=== PATIENT | male | born 1960 | race Caucasian/White ===

== ENCOUNTER → 2016-06-11 | Outpatient (CLI) | payer BC ==
--- NOTE | 2016-06-14 07:34 | RAD ---
Left shoulder four views INDICATION: Shoulder pain IMPRESSION: No fracture or dislocation. No destructive process. 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 Otherwise negative. Electronically signed by: Jose Boland MD 06/14/2016 7:34 AM CDT
== END | disposition home or self-care (01) ==
LOC: RAD 08:29
PROVIDERS: ATTEND Orthopaedic Surgery
DX: M25.512 Pain in left shoulder (principal)

== ENCOUNTER → 2016-07-16 | Outpatient (CLI) | payer BC ==
--- NOTE | 2016-07-19 08:59 | RAD ---
EXAM DESCRIPTION: Elbow,Right 3 Views CLINICAL HISTORY: PAIN IN RIGHT ELBOW COMPARISON: None Available. TECHNIQUE: AP, Lateral, and Oblique FINDINGS: Three-view right elbow shows no fracture or dislocation. No displaced fat pad or effusion is noted. There is no bone lesion. Mild degenerative arthritic changes are present There is no radiopaque foreign body. IMPRESSION: 1. Mild degenerative changes. Electronically signed by: Raj Hurst MD 07/19/2016 8:59 AM CDT
--- NOTE | 2016-07-19 09:01 | RAD ---
EXAM DESCRIPTION: Knee,Right Complete CLINICAL HISTORY: 56 years, Male, PAIN IN RIGHT KNEE COMPARISON: None TECHNIQUE: Four views of the right knee FINDINGS: Sclerosis and joint space narrowing with essentially a [id number] appearance of the medial joint compartment without marked hypertrophic lipping is present consistent with moderately advanced degenerative changes. Minimal thickening of the suprapatellar bursa suggest tenosynovitis or minimal effusion. No fracture or dislocation is seen. Hypertrophic changes along the anterior surface of the patella are noted. IMPRESSION: 1. Moderate degenerative joint changes and bone on bone appearance of the medial joint compartment. Electronically signed by: Raj Hurst MD 07/19/2016 9:01 AM CDT
--- NOTE | 2016-07-19 09:03 | RAD ---
EXAM DESCRIPTION: Pelvis CLINICAL HISTORY: 56 years Male, PAIN IN PELVIS COMPARISON: None. FINDINGS: AP view of the pelvis demonstrates mild joint space narrowing and hypertrophic lipping at the lateral acetabular rim. The bones are adequately mineralized without fracture or dislocation. SI joints are unremarkable. No bony pelvic abnormality is noted. Femoral heads remain smooth and round. IMPRESSION: Mild degenerative changes of the hips bilaterally Electronically signed by: Raj Hurst MD 07/19/2016 9:03 AM CDT
== END | disposition home or self-care (01) ==
LOC: RAD 08:12
PROVIDERS: ATTEND Orthopaedic Surgery
DX: M25.561 Pain in right knee (principal); M25.551 Pain in right hip; M25.521 Pain in right elbow

== ENCOUNTER → 2016-08-02 | Outpatient (CLI) | payer BC ==
--- NOTE | 2016-08-03 10:12 | MRI ---
EXAM DESCRIPTION: Shoulder,Left CLINICAL HISTORY: 56 years, Male, LT ROTATOR CUFF TEAR COMPARISON: None TECHNIQUE: MRI of the left shoulder was performed with multiplanar multi sequence imaging according to our usual protocol. FINDINGS: Rotator cuff intact and unremarkable. No tendinopathy tear or atrophy. Posterior superior labral tear is present from the 11:00 position down to about the 8:00 position of the labrum with a truncated appearance of the apex of the labrum as seen on oblique coronal imaging. Biceps labral complex is intact. There is no abnormality of the biceps tendon. AC joint shows minor capsular thickening. No productive osteophyte formation is observed. The patient has type II acromion process with moderate anterior and lateral downsloping. IMPRESSION: 1. Posterior labral tear from 8:00 to 11:00 Electronically signed by: Ras Croft MD 08/03/2016 10:11 AM CDT
== END | disposition home or self-care (01) ==
LOC: MRI 13:50
PROVIDERS: ATTEND Orthopaedic Surgery
DX: M75.102 Unspecified rotator cuff tear or rupture of left shoulder, not specified as traumatic (principal)

== ENCOUNTER → 2016-09-09 | Outpatient (CLI) | payer BC | END | disposition home or self-care (01) | LOC: LAB.O 08:55 | PROVIDERS: ATTEND Orthopaedic Surgery | DX: Z01.818 Encounter for other preprocedural examination (principal) ==

== ENCOUNTER → 2016-09-21 | Day surgery (SDC) | payer BC ==
[~2016-09-21] MED LIST: BUPIVACAINE 0.25% INJ 30 ML VIAL INJ ONE; HYDROcodone 5MG/APAP 325MG 1 EA TAB ONE; LACTATED RINGERS 0 ML ONE; LACTATED RINGERS 1,000 ML ONE; LIDOCAINE 1% 10 ML VIAL INJ ONE; LIDOCAINE 1% 50 ML VIAL INJ ONE; MIDAZOLAM INJ 5 MG/5 ML VIAL ONE; PROPOFOL 200 MG/20 ML VIAL IV ONE; SODIUM CHL 0.9% 100ML MINI-BAG 0 ML IVPB ONE; SODIUM CHL 0.9% 100ML MINI-BAG 100 ML IVPB ONE; VANCOMYCIN HCL INJ 1,000 MG VIAL IVPB ONE; ceFAZolin SODIUM 1 GM VIAL ONE; fentaNYL CITRATE INJ 50 MCG/ML AMP ONE
[2016-09-21 13:33] VITALS: BP 145/91; TEMP 97.2; O2SAT 99
--- NOTE | 2016-09-22 08:49 | OP ---
DATE OF PROCEDURE: 09/21/16 PREOPERATIVE DIAGNOSIS: 1. Carpal tunnel syndrome. POSTOPERATIVE DIAGNOSIS: 1. Carpal tunnel syndrome. PROCEDURE: 1. Carpal tunnel release. SURGEON: Juan C Black MD. OPERATIONS ASSOCIATE: Ryan London CST, SA-C. ANESTHESIA: Local with sedation. COMPLICATIONS: None. FINDINGS: Thickening of the transverse carpal ligament with narrowing of the median nerve across the carpal tunnel. INDICATION: The patient has a history of symptoms consistent with carpal tunnel syndrome. He has confirmation of that and because of his ongoing symptoms, he has requested operative intervention. After discussing the risks, benefits and alternatives to operative intervention with him, the patient has given informed consent for carpal tunnel release. PROCEDURE: The patient was brought to the Operating Room and placed in the supine position. Sedation was administered and local anesthetic was injected into the operative area under sterile conditions. After the injection of anesthetic, the arm was sterilely prepped and draped. A longitudinal incision was made directly overlying the transverse carpal ligament and blunt dissection was carried down to the ligament. The transverse carpal ligament was sharply transected along its length and a [place] elevator was used to ensure complete release of the ligament. Once release had been confirmed, the wound was thoroughly irrigated and the wound was closed with Nylon suture. A sterile dressing was placed and the patient was taken to the Day Surgery Unit. POSTOPERATIVE INSTRUCTIONS: The patient has been encouraged to do range of motion of the digits and will followup with us in two days. #[id number] [facility]
== END | disposition home or self-care (01) ==
LOC: AMB 12:30
PROVIDERS: ATTEND Orthopaedic Surgery
DX: G56.02 Carpal tunnel syndrome, left upper limb (principal); J44.9 Chronic obstructive pulmonary disease, unspecified; E66.9 Obesity, unspecified
CPT/HCPCS: 01810; 64721; J0690; J2250; J3010; J3370; J3490; J7050; J7120

== ENCOUNTER → 2016-11-29 | Outpatient (CLI) | payer BC ==
--- NOTE | 2016-11-29 14:06 | RAD ---
EXAM DESCRIPTION: Wrist,Left 3 Views CLINICAL HISTORY: 56 years, Male, PAIN IN LEFT WRIST COMPARISON: None TECHNIQUE: AP/ lateral/ oblique views of the left wrist. FINDINGS: Left wrist study shows no fracture or dislocation. An old healed fracture of the fifth metacarpal with bowing deformity is noted. Modest degenerative changes present at the distal radius and ulna are intact without fracture or dislocation. IMPRESSION: 1. Mild degenerative changes and old healed fracture of the fifth metacarpal, otherwise negative left wrist. Electronically signed by: Raj Hurst MD 11/29/2016 2:05 PM CDT
== END | disposition home or self-care (01) ==
LOC: RAD 09:24
PROVIDERS: ATTEND Orthopaedic Surgery
DX: M25.532 Pain in left wrist (principal)